=== PATIENT | female | born 1950 | race Caucasian/White ===

== ENCOUNTER 2018-05-06 14:17 | Emergency (ER) | payer OTHER ==
--- NOTE | 2018-05-06 15:04 | EDPHY ---
H & P Stated Complaint: Chest Pressure x 30 min Time Seen by Provider: 05/06/18 14:30 HPI/ROS: CHIEF COMPLAINT: Chest pressure HISTORY OF PRESENT ILLNESS: The patient is a 67 y/o female arriving with her friend complaining of a one-hour episode of chest pressure that began this afternoon. She initially noticed pressure along the left side of her sternum that she does not describe as pain. At various times this sensation moved around her chest and down the lateral sides of her rib cage. She denies radiation into her jaw or arms or association with nausea or diaphoresis. She took a shower while symptoms were present and had a brief self limited moment of dyspnea. She does not think the pressure is currently present, though it's difficult for her to tell with certainty due to the sports bra she is wearing. She's never had symptoms like this previously. She denies recent illness, cough , cold symptoms, abdominal pain, vomiting, diarrhea, leg swelling, back pain, urinary symptoms, recent trauma. No known history of hypertension, diabetes, or known cardiac disease in primary relatives. REVIEW OF SYSTEMS: A ten system review of systems was performed and is negative with the exception of the items mentioned in the HPI. Past medical history: Chronic fatigue syndrome (resolved), on a supplement for thyroid, ruptured appendix, undiagnosed intermittent tremor of right hand and foot, cholesterol "a little high but the ratios were normal" (no medication) Past surgical history: Appendectomy, tonsillectomy Family history: Father with pancreatic cancer and alcoholism age 63, mother with "weird cancer" Social history: Friend at bedside. Works in [employer]. No tobacco use. General Appearance: Alert. Vital signs reviewed. Initial blood pressure 140/ 100. Eyes: Pupils equal and round, no conjunctival injection, no discharge. Anicteric. ENT, Mouth: Mucous membranes are moist, no oropharyngeal erythema or edema. Neck: No lymphadenopathy, supple. No JVD. Respiratory: Lungs are clear to auscultation; no wheezes, rales, or rhonchi. Cardiovascular: Regular rate and rhythm; no murmur, rub, or gallop. Gastrointestinal: Abdomen is soft and nontender, no masses or organomegaly. Skin: Warm and dry, no rashes on exposed skin, normal color. Back: Nontender to palpation over the thoracolumbar spine. No CVAT. Extremities: No lower extremity edema, no calf tenderness or swelling. Neurological: Alert and oriented. Moving all four extremities easily and equally. Intermittent tremor in right hand. Psychiatric: Normal affect. - Medical/Surgical History Hx Asthma: No Hx Chronic Respiratory Disease: No Hx Diabetes: No Hx Cardiac Disease: No Hx Renal Disease: No Hx Cirrhosis: No Hx Alcoholism: No Hx HIV/AIDS: No Hx Splenectomy or Spleen Trauma: No Other PMH: panic attack - Social History Smoking Status: Never smoked Constitutional: Initial Vital Signs Temperature (C) 36.3 C 05/06/18 14:21 Heart Rate 84 05/06/18 14:21 Respiratory Rate 18 05/06/18 14:21 Blood Pressure 140/100 H 05/06/18 14:21 O2 Sat (%) 92 05/06/18 14:21 O2 Delivery Mode Room Air Allergies/Adverse Reactions: Sulfa (Sulfonamide Antibiotics) Allergy (Intermediate, Verified 04/25/14 21:23) Rash Medical Decision Making ED Course/Re-evaluation: This is a 67 y/o female with no known history of cardiac disease who presents after an episode of chest pressure lasting approximately 1 hour this afternoon. She appears somewhat anxious and has an intermittent tremor in her right hand, but otherwise has a nonfocal exam. Low suspicion for ACS, but will evaluate with IV, labs, EKG. 324mg PO aspirin ordered. The 12 lead EKG was interpreted by myself. Sinus mechanism, rate 76. See hard copy and/or "tracemaster" electronic copy for interpretation. HEART score is 2, low risk for major coronary event within the next 6 weeks. I discussed the HEART score with her involved her in the decision making concerning further treatment in the emergency department. She opts for a 2nd troponin and 2nd EKG. She is able to make her own medical decisions and understands the risks and benefits of further treatment. POC Troponin: 0.00. Repeat EKG: The 12 lead EKG was interpreted by myself. Sinus mechanism, rate 64. Same as prior. See hard copy and/or "tracemaster" electronic copy for interpretation. Repeat POC Troponin: within normal range. She is referred to her primary care physician and also to Cardiology for additional evaluation as needed. Danger signs reviewed with her. I reviewed her EKG, blood work, and chest x-ray. There is no evidence of an infectious process such as pneumonia. I do not suspect PE, Wells score zero. Differential Diagnosis: Chest pain including but not limited to myocardial ischemia, pulmonary embolus, chest wall pain, pleural inflammation and pulmonary infectious causes. - Data Points Laboratory Results: Laboratory Results 05/06/18 14:30 05/06/18 14:30 Medications Given: Discontinued Medications Aspirin (Aspirin) 324 mg PO EDNOW ONE Stop: 05/06/18 15:18 Last Admin: 05/06/18 15:45 Dose: 324 mg Point of Care Test Results: Chemistry 05/06/18 05/06/18 16:37 15:46 POC Troponin I 0.01 ng/mL ng/mL 0.00 ng/mL ng/mL (0.00-0.08) (0.00-0.08) Departure - Departure Disposition: Home, Routine, Self-Care Clinical Impression: Chest pressure Condition: Good Instructions: Chest Pain (ED) Additional Instructions: 1. Follow up with nightman in the next week. I recommend calling tomorrow morning to schedule this appointment. 2. Return to the ED for severe pain, difficulty breathing, loss of consciousness , or other worsening of condition. Referrals: JATINDER HANCOCK [Primary Care Provider] - As per Instructions Pedro Maldonado MD [Medical Doctor] - As per Instructions Report Scribed for: Scarlet Lock Report Scribed by: Melanie Dejesus Date of Report: 05/06/18 Time of Report: 15:16 Physician Review and Approval Statement: 05/06/18 15:03 Portions of this note were transcribed by the medical coder. I, Dr. Scarlet Lock, personally performed the history, physical exam, and medical decision- making; and confirmed the accuracy of the information in the transcribed note.
[2018-05-06 15:08] LABS: PLATELET COUNT 214 10^3/uL (150-400)
[2018-05-06] MEDS ORDERED: ASPIRIN 81 MG CHEWABLE TAB PO ONE (15:17)
[2018-05-06 16:03] VITALS: BP 129/76
--- NOTE | 2018-05-06 18:01 | CPEKG ---
Test Reason : OPEN Blood Pressure : / mmHG Vent. Rate : 076 BPM Atrial Rate : 077 BPM P-R Int : 165 ms QRS Dur : 084 ms QT Int : 378 ms P-R-T Axes : 082 083 039 degrees QTc Int : 426 ms Sinus rhythm Borderline right axis deviation Confirmed by Scarlet Lock ([id number]) on 05/06/2018 6:00:32 PM Referred By: Confirmed By:Scarlet Lock
--- NOTE | 2018-05-06 18:01 | CPEKG ---
Test Reason : OPEN Blood Pressure : / mmHG Vent. Rate : 064 BPM Atrial Rate : 064 BPM P-R Int : 180 ms QRS Dur : 084 ms QT Int : 418 ms P-R-T Axes : 070 055 015 degrees QTc Int : 432 ms Sinus rhythm Probable left atrial enlargement Confirmed by Scarlet Lock ([id number]) on 05/06/2018 6:00:25 PM Referred By: Confirmed By:Scarlet Lock
== END 2018-05-06 16:58 | disposition home or self-care (01) ==
DX: R07.9 Chest pain, unspecified (principal)
CPT/HCPCS: 84484-ER